=== PATIENT | male | born 1985 | race Caucasian/White ===

== ENCOUNTER 2021-10-03 10:16 | Emergency (ER) | payer OTHER ==
[2021-10-03 11:20] LABS: ALBUMIN 4.2 g/dL (3.4-5.0); BILIRUBIN - TOTAL 0.4 mg/dL (0.2-1.0); BUN/CREAT RATIO (CALC) 18.3 RATIO; CREATININE 1.15 mg/dL (0.67-1.17); GLOBULIN (CALCULATION) 3.5 g/dL; POTASSIUM 4.2 mmol/L (3.5-5.1); TOTAL PROTEIN 7.7 g/dL (6.4-8.2)
[2021-10-03 11:23] LABS: INR 1.06 (0.9-1.2); PROTHROMBIN TIME 13.2 SECONDS (11.8-13.4); PTT 26.3 SECONDS (24.4-34.7)
[2021-10-03 11:37] LABS: BASOPHIL 0.6 % (0-2); EOSINOPHIL 0.6 % (0-5); HCT 49.9 % (42.0-52.0); HGB 16.7 g/dl (13.2-18.0); LYMPHOCYTE 31.1 % (15-48); MCH 29.3 pg (25.0-31.0); MCHC 33.5 g/dL (32.0-36.0); MCV 87.5 fL (78.0-100.0); MONOCYTE 6.4 % (0-12); MPV 12.3 fL (6.0-9.5); NEUTROPHIL 60.9 % (41-80); NRBC 0; PLT 178 K/uL (150-400); RDW 12.3 % (11.5-14.0); WBC 5.2 K/uL (4.0-10.5)
[2021-10-03] MEDS ORDERED: ONDANSETRON ODT4 MG PO (13:52)
[2021-10-03] MEDS ORDERED: PROTONIX 40MG T40 MG PO (13:52)
== END 2021-10-03 14:32 | disposition home or self-care (01) ==
LOC: FER 10:16
PROVIDERS: Emergency Medicine
DX: R07.89 Other chest pain (principal); I10 Essential (primary) hypertension
CPT/HCPCS: 36415; 71045; 80053; 84484; 85025; 85610; 85730; 93005; J2405

== ENCOUNTER 2022-03-24 00:38 | Emergency (ER) | payer OTHER ==
[~2022-03-24 00:38] MED LIST: ONDANSETRON ODT4 MG PO; PROTONIX 40MG T40 MG PO
[2022-03-24 01:00] LABS: BASOPHIL 0.5 % (0-2); EOSINOPHIL 0.3 % (0-5); HCT 45.7 % (42.0-52.0); HGB 15.5 g/dl (13.2-18.0); LYMPHOCYTE 28.6 % (15-48); MCH 29.4 pg (25.0-31.0); MCHC 33.9 g/dL (32.0-36.0); MCV 86.6 fL (78.0-100.0); MPV 11.6 fL (6.0-9.5); NEUTROPHIL 63.4 % (41-80); NRBC 0; PLT 166 K/uL (150-400); RBC 5.28 M/uL (4.70-6.00); WBC 6.6 K/uL (4.0-10.5)
[2022-03-24 01:26] LABS: ALBUMIN 4.1 g/dL (3.4-5.0); BILIRUBIN - TOTAL 0.4 mg/dL (0.2-1.0); BUN/CREAT RATIO (CALC) 14.7 RATIO; CREATININE 1.02 mg/dL (0.67-1.17); GLOBULIN (CALCULATION) 3.3 g/dL; POTASSIUM 3.5 mmol/L (3.5-5.1); TOTAL PROTEIN 7.4 g/dL (6.4-8.2)
[2022-03-24 02:40] LABS: CORONAVIRUS 2019 SARS-COV-2 NEGATIVE (NEGATIVE); INFLUENZA A NAA NEGATIVE (NEGATIVE)
== END 2022-03-24 03:10 | disposition home or self-care (01) ==
LOC: FER 00:38
PROVIDERS: Internal Medicine
DX: B34.9 Viral infection, unspecified (principal); R07.89 Other chest pain; Z20.822 Contact with and (suspected) exposure to COVID-19
CPT/HCPCS: 36415; 71045; 80053; 83735; 84145; 84439; 84443; 84484; 85025; 93005; 94640; U0002